=== PATIENT | male | born 1935 | race Caucasian/White ===

== ENCOUNTER → 2022-06-27 | Outpatient (CLI) | payer MEDICARE | END | disposition home or self-care (01) | LOC: LAB SHORT 12:00 | DX: R53.83 Other fatigue (principal) | CPT/HCPCS: 84443 ==

== ENCOUNTER 2022-08-09 08:09 | Day surgery (SDC) | payer MEDICARE ==
[~2022-08-09] VITALS: Ht 188 cm; Wt 99.3 kg
[~2022-08-09 08:09] MED LIST: Aspir 8181 MG PO
[2022-08-09 08:54] LABS: BASOPHILS ABSOLUTE AUTO 0.01 K/mm3 (0.00-0.23); BASOPHILS PERCENT AUTO 0 % (0-2); EOSINOPHILS ABSOLUTE AUTO 0.04 K/mm3 (0.00-0.68); EOSINOPHILS PERCENT AUTO 1 % (0-6); Hematocrit 45.6 % (37.0-53.0); Hemoglobin 15.1 g/dL (13.5-17.5); IMMATURE GRAN ABSOLUTE AUTO 0.02 K/mm3 (0.00-0.10); IMMATURE GRAN PERCENT AUTO 0 % (0-1); LYMPHOCYTES ABSOLUTE AUTO 1.13 K/mm3 (0.84-5.20); LYMPHOCYTES PERCENT AUTO 22 % (21-46); MONOCYTES PERCENT AUTO 8 % (4-13); Mean Corpuscular HGB 30.6 pg (26.0-34.0); Mean Corpuscular HGB Conc 33.1 g/dL (31.5-36.5); Mean Corpuscular Volume 93 fL (80-100); NEUTROPHILS ABSOLUTE AUTO 3.61 K/mm3 (1.96-9.15); NEUTROPHILS PERCENT AUTO 69 % (41-73); Platelet Count 198 K/mm3 (150-400); RDW Standard Deviation 43.8 fL (35.1-46.3); Red Blood Cell Count 4.93 M/mm3 (4.30-5.90); White Blood Cell Count 5.21 K/mm3 (4.00-11.30)
[2022-08-09 09:11] LABS: Bun/Creatinine Ratio 14.7 (12.0-20.0); Calcium, Blood 9.1 mg/dL (8.5-10.1); Creatinine, Blood 1.02 mg/dL (0.60-1.20)
[2022-08-09 09:25] LABS: International Normalized Ratio 1.05
--- NOTE | 2022-08-09 13:43 | NUR ---
Advanced Directive Education Request Pt. and family request information on Advanced Directive. Walked through AD booklet with Pt. and family. Family verbalized gratitude for the information and visit.
--- NOTE | 2022-08-09 16:59 | NUR ---
Recieved call from Pt's Primary RN Echo reporting Pt and family had questions about advanced directive. Pt resting in bed and is A&OX4. Pt denies pain at this time. Offered therapeutic listening as family discusses advanced directive. Gentle education on each section to complete and the importance of appointing a healthcare eligibility services representative. Provided POLST for Pt to considering completing as well. Educated on life sustaining measures including risks and consequences to CPR/Intubation. Discussed each section to complete and educated on each option. Offered therapeutic listening and answered questions. Pt and family express appreciation and report no other concerns at this time. Provided Palliative Care contact information per family request. Pt and family report plan to complete forms when at home after further discussions. Palliative Care will remain available
--- NOTE | 2022-08-10 04:48 | NUR ---
SHIFT SUMMARY PT A&Ox4, CALLS AND COMMUNICATES NEEDS APPROPRIATELY. VSS, BP STABLE, SINUS 70's, DENIES CP/PRESSURE. SpO2> 92% ON RA, DENIES SOB. PT SBA TO BATHROOM, CONTINENT OF URINE, NO BM THIS SHIFT. DRESSING OVER PACER SITE HAS SMALL AMOUNT OF SEROSANGUINEOUS DRAINAGE, MARKED THIS SHARPIE AT START OF SHIFT, DRAINAGE HAS NOT EXPANDED. PT REPORTS MILD DISCOMFORT IN LEFT SHOULDER WHEN PT SLIGHTLY MOVES ARM. SLING STAYED IN PLACE THROUGHOUT SHIFT, PT COMPLIANT WITH POST PACER RESTRICTIONS. NO OTHER EVENTS, WILL REPORT TO ONCOMING RN.
[2022-08-10] MEDS ORDERED: CEPH500 PO (10:27)
--- NOTE | 2022-08-10 11:24 | NUR ---
DISCHARGE HOME PT A&O X4. VSS. SPO2 > 92% ON RA. MONITOR SHOWING NSR, HR 60s. MD DENNY TO BEDSIDE THIS AM FOR LCW PACER DRESSING CHANGE. L ARM REMAINS IN SLING. PT COMPLIANT W/ POST PACER MOBILITY RESTRICTIONS. DISCHARGE INSTRUCTIONS REVIEWED W/ PT & SENT HOME W/ PT. PIV REMOVED. PT ASSISTED W/ GETTING DRESSED IN PERSONAL CLOTHING. PT ABLE TO STAND & AMBULATE TO WHEELCHAIR. PT TAKEN OUT BY PCT IN WC W/ FAMILY & BELONGINGS @ APPROX 1100.
== END 2022-08-10 11:00 | disposition home or self-care (01) ==
LOC: MHTC 08:09 → PCU 10:42 → MHTC 08-10 11:00
PROVIDERS: Internal Medicine Cardiovascular Disease
DX: R55 Syncope and collapse (principal); I44.1 Atrioventricular block, second degree; I10 Essential (primary) hypertension; R00.1 Bradycardia, unspecified; E78.5 Hyperlipidemia, unspecified; K21.9 Gastro-esophageal reflux disease without esophagitis; Z88.0 Allergy status to penicillin; Z88.8 Allergy status to other drugs, medicaments and biological substances
CPT/HCPCS: 33208; 71045; 71046; 76937; 80048; 85025; 85610; 93005; 93010; 99152; 99153; A9270; C1785; C1894; C1898; J1644; J2250; J3010; J3370; J7030; J7040; J7050

== ENCOUNTER → 2022-11-04 | Outpatient (CLI) | payer MEDICARE ==
[~2022-11-04] MED LIST changes: +CEPH500 PO
[2022-11-04 18:57] LABS: BASOPHILS ABSOLUTE AUTO 0.02 K/mm3 (0.00-0.23); BASOPHILS PERCENT AUTO 0 % (0-2); EOSINOPHILS ABSOLUTE AUTO 0.06 K/mm3 (0.00-0.68); EOSINOPHILS PERCENT AUTO 1 % (0-6); Hematocrit 44.6 % (37.0-53.0); Hemoglobin 14.8 g/dL (13.5-17.5); IMMATURE GRAN PERCENT AUTO 0 % (0-1); LYMPHOCYTES ABSOLUTE AUTO 1.18 K/mm3 (0.84-5.20); LYMPHOCYTES PERCENT AUTO 24 % (21-46); MONOCYTES ABSOLUTE AUTO 0.51 K/mm3 (0.16-1.47); MONOCYTES PERCENT AUTO 10 % (4-13); Mean Corpuscular HGB 30.6 pg (26.0-34.0); Mean Corpuscular HGB Conc 33.2 g/dL (31.5-36.5); Mean Corpuscular Volume 92 fL (80-100); Mean Platelet Volume 9.4 fL (9.1-12.4); NEUTROPHILS ABSOLUTE AUTO 3.25 K/mm3 (1.96-9.15); NEUTROPHILS PERCENT AUTO 65 % (41-73); Platelet Count 180 K/mm3 (150-400); RDW Coefficient Variation 12.9 % (11.7-14.2); RDW Standard Deviation 43.9 fL (35.1-46.3); Red Blood Cell Count 4.83 M/mm3 (4.30-5.90); White Blood Cell Count 5.02 K/mm3 (4.00-11.30)
[2022-11-04 19:36] LABS: Albumin, Blood 3.7 g/dL (3.4-5.0); Albumin/Globulin Ratio 1.3 (0.8-1.8); Bilirubin, Direct 0.1 mg/dL (0.0-0.3); Bilirubin, Indirect 0.5 mg/dL (0.1-0.7); Bilirubin, Total 0.6 mg/dL (0.1-1.0); Bun/Creatinine Ratio 14.3 (12.0-20.0); Calcium, Blood 9.1 mg/dL (8.5-10.1); Creatinine, Blood 0.91 mg/dL (0.60-1.20); Globulin, Blood 2.9 g/dL (2.2-4.0); Potassium, Blood 4.1 mmol/L (3.5-5.5); Total Protein, Blood 6.6 g/dL (6.4-8.2)
== END ==
LOC: LAB SHORT 17:44 → LAB 17:44
PROVIDERS: Family Medicine
DX: R53.83 Other fatigue (principal)
CPT/HCPCS: 80053; 82248; 85025